=== PATIENT | male | born 1990 | race Caucasian/White ===

== ENCOUNTER 2017-11-26 05:43 | Day surgery (SDC) | payer OTHER ==
[2017-11-22 15:35] VITALS: BMI 23.0
--- NOTE | 2017-11-25 22:34 | HP ---
HISTORY OF PRESENT ILLNESS: Mr. Dickson is a 27-year-old man who presents today for discussion of rou ghly a year's worth of severe lower back and left lower extremity L5 pains. Leg pains have improved a great deal and mostly he deals with back and buttock pain, but if he straightens his leg too much, the pain is severe. MRI on disk reveals disk extrusion to the left at L4-L5 impacting the descending L5 nerve root fitting his symptoms rather well. He has not attempted injections, but is also not in terested in doing so. PAST MEDICAL HISTORY: Significant for lower back pain, but no other major health problems. PAST SURGICAL HISTORY: Right foot fracture fixation. CURRENT MEDICATIONS: Methocarbamol, ibuprofen, meloxicam, cyclobenzaprine. ALLERGIES: No known drug allergies. PHYSICAL EXAMINATION: NEUROLOGIC: The patient is alert and oriented x3. Gait is mildly antalgic. Straight leg raise on t he left is positive, on the right is negative. Lower extremity motor exam is normal. No sensory dis turbance that I can discern. ASSESSMENT: Lumbar disk herniation. PLAN: Dr. Rodriguez met with the patient, reviewed imaging, and advocated for a left L4 diskectomy. He explained to the patient the risks, benefits, and alternatives to the procedure. The patient express ed understanding and would like to move forward with surgery as discussed. I do believe the patient is mentally competent and capable of making medical decisions for himself and we will move forward [facility] surgery as planned. Francisco Vargas PA-C dictating for Dr. Rodriguez.
[2017-11-26] MEDS ORDERED: CEFAZOLIN/Water 2 GM/20 ML SYRINGE ONE ×2 (06:09→09:50)
[2017-11-26] MEDS ORDERED: Midazolam HCl 2 mg/2 ml Vial ONE (06:12)
[2017-11-26] MEDS ORDERED: Fentanyl 250 MCG/5 ML VIAL ONE (06:12)
[2017-11-26] MEDS ORDERED: Bupivacaine HCl 0.5%/Epinephrine 1:200,000/PF 30 ml Vial ONE (06:35)
[2017-11-26] MEDS ORDERED: Thrombin 5000 UNITS/5 ML VIAL ONE (06:35)
--- NOTE | 2017-11-26 08:19 | OP ---
DATE OF PROCEDURE: 11/26/2017 SURGEON: Herve Rodriguez M.D. DATA NETWORK ARCHITECT: JIMMY Tuttle. INDICATION: Pain. DIAGNOSIS: Left L5 radiculopathy. PROCEDURE: Left L4-L5 hemilaminectomy, medial facetectomy, discectomy. ANESTHESIA: General. TECHNIQUE: The patient was brought into the operating room and placed under general anesthesia. He was flipped from a supine or prone position on the operating room table. A linear incision was planned over the L4-L5 segment. After prepping and draping and after an appropriate operative pause, the incision was created. The soft tissues were swept left of midline. Self- retaining retractors were placed in the wound for optimal exposure. After confirming the appropriate level, C-arm fluoroscopy, a high-speed cutting drill bit as well as 2, 3 and 4-mm Kerrisons used to perform a laminectomy along the inferior aspect of L4 and the superior aspect of L5. The L5 pedicle was identified as well as the descending L5 nerve root. The L4 disk space was identified where the nerve root was mobilized medially with a nerve root retractor and an annulotomy was performed at the disk space. We encountered a disk osteophyte complex. Disk material was removed. A generous medial facetectomy was performed in order to accommodate the osteophyte at the level of the descending L5 nerve root. The wound was then irrigated. Hemostasis was maintained throughout. The wound was then closed in anatomic layers and a pressure dressing was applied. There were no known procedural complications. [facility]
[2017-11-26] MEDS ORDERED: Fentanyl 100 MCG/2 ML VIAL ONE (08:35)
[2017-11-26] MEDS ORDERED: Morphine 4 MG/ML VIAL ONE ×2 (08:42→11:21)
[2017-11-26] MEDS ORDERED: Acetaminophen/Codeine 30-300mg Tablet ONE (09:07)
[2017-11-26] MEDS ORDERED: Dexamethasone 20 MG/5 ML VIAL ONE (10:31)
[2017-11-26] MEDS ORDERED: PROPOFOL 200 MG/20 ML VIAL ONE (10:31)
[2017-11-26] MEDS ORDERED: Glycopyrrolate 0.2 MG/ML 5 ML SYRINGE ONE (10:31)
[2017-11-26] MEDS ORDERED: ePHEDrine/0.9% NaCl/PF SYRINGE 50 mg/10 ml ONE (10:31)
[2017-11-26] MEDS ORDERED: Ondansetron HCl/PF 4 MG/2 ML Vial ONE (10:31)
[2017-11-26] MEDS ORDERED: Lidocaine 1% PF 5 ML VIAL ONE (10:31)
[2017-11-26] MEDS ORDERED: Cyclobenzaprine 10 MG TAB ONE (11:21)
== END 2017-11-27 12:00 | disposition home or self-care (01) ==
LOC: EDBD → SDC 05:43
PROVIDERS: ATTEND Neurological Surgery
PROC: 01NB0ZZ Release Lumbar Nerve, Open Approach (ICD-10-PCS; principal; 2017-11-26)
PROC: 0ST20ZZ Resection of Lumbar Vertebral Disc, Open Approach (ICD-10-PCS; principal; 2017-11-26)
DX: M51.16 Intervertebral disc disorders with radiculopathy, lumbar region (principal); M25.78 Osteophyte, vertebrae; F41.9 Anxiety disorder, unspecified; F32.9 Major depressive disorder, single episode, unspecified; F17.210 Nicotine dependence, cigarettes, uncomplicated; Z98.890 Other specified postprocedural states
CPT/HCPCS: 76001; 96374; J0670; J1100; J2001; J2250; J2270; J2405; J2704; J3010